=== PATIENT | male | born 1990 | race Caucasian/White ===

== ENCOUNTER 2017-03-11 05:40 | Emergency (ER) | payer OTHER ==
[2017-03-11 05:44] VITALS: BMI 25.5
--- NOTE | 2017-03-11 05:46 | PDOC ---
Attending Attestation - Resident Resident Name: Rabia Ring - ED Attending Attestation I have performed the following: I have examined & evaluated the patient, The case was reviewed & discussed with the resident, I agree w/resident's findings & plan, Exceptions are as noted - HPI HPI: 03/11/17 06:37 Mid sternal cp with started just prior to presentation. Pt brought in by EMS. - Physicial Exam PE: 03/11/17 06:37 *Physical Exam General Appearance: Yes: Appropriately Dressed. No: Apparent Distress, Intoxicated HEENT: positive: EOMI, DEREK, Normal ENT Inspection, Normal Voice, TMs Normal, Pharynx Normal. negative: Pale Conjunctivae, Photophobia, Scleral Icterus (R), Scleral Icterus (L) Neck: positive: Trachea midline, Normal Thyroid, Supple. negative: Tender, Rigid, Carotid bruit, Stridor, Lymphadenopathy (R), Lymphadenopathy (L), Thyromegaly Respiratory/Chest: positive: Lungs Clear, Normal Breath Sounds. negative: Chest Tender, Respiratory Distress, Accessory Muscle Use, Labored Respiration, RES, Crackles, Rales, Rhonchi, Stridor, Wheezing, Dullness Cardiovascular: positive: Regular Rhythm, Regular Rate, S1, S2. negative: Edema , JVD, Murmur, Bradycardia, Tachycardia Vascular Pulses: Dorsalis-Pedis (R): 2+, Doralis-Pedis (L): 2+ Gastrointestinal/Abdominal: positive: Normal Bowel Sounds, Flat, Soft. negative : Tender, Organomegaly, Pulsatile Mass, Increased Bowel Sounds, Decreased BS, Distended, Guarding, Rebound, Hernia, Hepatomegaly, Spleenomegaly Lymphatic: negative: Adenopathy, Tenderness Musculoskeletal: positive: Normal Inspection. negative: CVA Tenderness, Decreased Range of Motion Extremity: positive: Normal Capillary Refill, Normal Inspection, Normal Range of Motion, Pelvis Stable. negative: Tender, Pedal Edema, Swelling, Erythema Integumentary: positive: Normal Color, Dry, Warm. negative: Cyanotic, Erythema , Jaundice, Rash Neurologic: positive: truckman II-XII NML intact, Fully Oriented, Alert, Normal Mood/ Affect, Motor Strength 5/5. negative: EOM Palsy, Facial Droop, Sensory Deficit - Medical Decision Making 03/11/17 19:37 Pt discharged after labs appear to be stable
[2017-03-11 05:55] LABS: EOSINOPHIL 0.4 % (0-4.5); MCH 32.4 pg (25.7-33.7); MCHC 34.8 g/dl (32.0-35.9); MEAN CELL VOLUME 93.1 fl (80-96); NEUTROPHILS 70.7 % (42.8-82.8); PLATELET COUNT 293 K/MM3 (134-434); RDW 13.8 % (11.9-15.9); WHITE BLOOD COUNT 8.9 K/mm3 (4.0-10.0)
--- NOTE | 2017-03-11 05:59 | PDOC ---
History of Present Illness - General Chief Complaint: Chest Pain Stated Complaint: CHEST PAIN Time Seen by Provider: 03/11/17 05:44 History Source: Patient - History of Present Illness Initial Comments: 03/11/17 05:58 Patient is a 26 y.o. male who presents with acute onset of chest pain. Patient states he was watching television when he felt a stabbing bilateral chest pain. Patient endorses associated diaphoresis and subsequently diarrhea but denies any dyspnea, lightheadness, vomiting. Patient notes he smoked marijuana on Wednesday. Past History - Past Medical History Allergies/Adverse Reactions: Allergies Allergy/AdvReac Type Severity Reaction Status Date / Time No Known Allergies Allergy Verified 03/11/17 05:42 Home Medications: Ambulatory Orders NK [No Known Home Medication] 03/11/17 - Suicide/Smoking/Psychosocial Hx Smoking History: Current every day smoker Have you smoked in the past 12 months: Yes Number of Cigarettes Smoked Daily: 10 Information on smoking cessation initiated: No Hx Alcohol Use: No Drug/Substance Use Hx: No Review of Systems - Review of Systems Constitutional: Yes: Diaphoresis Respiratory: No: Shortness of Breath Cardiac (ROS): Yes: Chest Pain ABD/GI: Yes: Diarrhea. No: Constipated, Nausea, Vomiting All Other Systems: Reviewed and Negative *Physical Exam - Vital Signs Last Vital Signs Temp Pulse Resp BP Pulse Ox 88 14 168/98 100 03/11/17 05:43 03/11/17 05:43 03/11/17 05:43 03/11/17 05:43 - Physical Exam General Appearance: Yes: Nourished, Appropriately Dressed Neck: positive: Trachea midline, Supple Respiratory/Chest: positive: Lungs Clear Cardiovascular: positive: S1, S2 Gastrointestinal/Abdominal: positive: Normal Bowel Sounds, Soft Extremity: positive: Normal Capillary Refill, Normal Inspection Neurologic: positive: Fully Oriented, Alert ED Treatment Course - LABORATORY CBC & Chemistry Diagram: 03/11/17 05:42 03/11/17 05:42 - RADIOLOGY Radiology Studies Ordered: Category Date Time Status CHEST PA & LAT [RAD] Stat Radiology 03/11/17 05:43 Ordered Medical Decision Making - Medical Decision Making 03/11/17 06:00 Patient is a 26 y.o. male who presents with acute onset of chest pain. Initial DDx is for r/o ACS vs. Toxic ingestion vs. muscle pain. PLAN: 1. Troponin, CBC, CMP 2. EKG 3. CXR 4. Urine toxicology screen 03/11/17 06:01 EKG shows NSR, HR 85, RBBB in V1, normal intervals, normal T wave, and no ST elevations/depressions, the latter indicating no acute ischemic change 03/11/17 06:54 Urine positive for amphetamines and marijuana, patient's repeat BP 179/103 - patient administered Ativan (1 mg). Repeat Troponin in 6 hour (12 p.m.) 03/11/17 06:55 Likely disposition is observation admit or discharge pending patient's BP; Patient signed out to Dr. Hayes (Resident) and Dr. Zuniga (Attending) *DC/Admit/Observation/Transfer Diagnosis at time of Disposition: Chest pain
[2017-03-11 06:11] LABS: INR 0.91 (0.82-1.09); PROTHROMBIN TIME (PATIENT) 10.3 SEC (9.98-11.88)
[2017-03-11 06:12] LABS: URINE APPEARANCE CLEAR; URINE BILIRUBIN NEGATIVE (NEGATIVE); URINE BLOOD NEGATIVE (NEGATIVE); URINE COLOR STRAW; URINE GLUCOSE (UA) NEGATIVE (NEGATIVE); URINE KETONE NEGATIVE (NEGATIVE); URINE NITRITE NEGATIVE (NEGATIVE); URINE PROTEIN NEGATIVE (NEGATIVE); URINE UROBILINOGEN NEGATIVE mg/dL (0.2-1.0)
[2017-03-11 06:13] LABS: ACTIVATED PTT 30.3 SECONDS (26.9-34.4)
[2017-03-11 06:22] LABS: ALBUMIN 4.3 g/dl (3.4-5.0); ANION GAP 9 (8-16); BILIRUBIN,TOTAL 1.2 mg/dL (0.2-1.0); CO2 26 mmol/L (21-32); CREATININE 0.8 mg/dL (0.7-1.3); GLUCOSE,RANDOM 100 mg/dL (74-106); SGOT/AST 67 U/L (15-37); SGPT/ALT 40 U/L (12-78); TOT PROT 7.9 g/dl (6.4-8.2)
[2017-03-11 06:22] LABS: URINE MARIJUANA THC POSITIVE ng/ml (CUTOFF=50)
[2017-03-11 06:25] LABS: ALK PHOS 102 U/L (45-117); TROPONIN I < 0.02 ng/ml (0.00-0.05)
[2017-03-11] MEDS ORDERED: LORazepam 2 MG/ML SDV VIAL ONE (06:59)
--- NOTE | 2017-03-11 07:27 | PDOC ---
*Physical Exam - Vital Signs Last Vital Signs Temp Pulse Resp BP Pulse Ox 88 14 168/98 100 03/11/17 05:43 03/11/17 05:43 03/11/17 05:43 03/11/17 05:43 ED Treatment Course - LABORATORY CBC & Chemistry Diagram: 03/11/17 05:42 03/11/17 05:42 - ADDITIONAL ORDERS Additional order review: Laboratory Results 03/11/17 03/11/17 03/11/17 05:46 05:46 05:44 PT with INR 10.30 INR 0.91 PTT (Actin FS) 30.3 Sodium Potassium Chloride Carbon Dioxide Anion Gap BUN Creatinine Creat Clearance w eGFR Random Glucose Calcium Total Bilirubin AST ALT Alkaline Phosphatase Troponin I Total Protein Albumin Urine Color Straw Urine Appearance Clear Urine pH 7.0 Urine Protein Negative Urine Glucose (UA) Negative Urine Ketones Negative Urine Blood Negative Urine Nitrite Negative Urine Bilirubin Negative Urine Urobilinogen Negative Opiates Screen Negative Methadone Screen Negative Barbiturate Screen Negative Phencyclidine Screen Negative Ur Amphetamines Screen Positive MDMA (Ecstasy) Screen Negative Benzodiazepines Screen Negative Cocaine Screen Negative U Marijuana (THC) Screen Positive 03/11/17 05:42 PT with INR INR PTT (Actin FS) Sodium 138 Potassium 3.6 Chloride 103 Carbon Dioxide 26 Anion Gap 9 BUN 8 Creatinine 0.8 Creat Clearance w eGFR > 60 Random Glucose 100 Calcium 9.0 Total Bilirubin 1.2 H AST 67 H ALT 40 Alkaline Phosphatase 102 Troponin I < 0.02 Total Protein 7.9 Albumin 4.3 Urine Color Urine Appearance Urine pH Urine Protein Urine Glucose (UA) Urine Ketones Urine Blood Urine Nitrite Urine Bilirubin Urine Urobilinogen Opiates Screen Methadone Screen Barbiturate Screen Phencyclidine Screen Ur Amphetamines Screen MDMA (Ecstasy) Screen Benzodiazepines Screen Cocaine Screen U Marijuana (THC) Screen 03/11/17 05:42 RBC 4.60 MCV 93.1 MCHC 34.8 RDW 13.8 MPV 8.0 Neutrophils % 70.7 Lymphocytes % 19.2 Monocytes % 8.7 Eosinophils % 0.4 Basophils % 1.0 - Medications Given in the ED: ED Medications Discontinued Medications Generic Name Dose Route Start Last Admin Trade Name Freq PRN Reason Stop Dose Admin Lorazepam 1 mg 03/11/17 06:46 03/11/17 07:04 Ativan Injection - IVPUSH 03/11/17 06:47 1 mg ONCE ONE Administration Medical Decision Making - Medical Decision Making 03/11/17 07:24 Patient was signed out to me by night team, Dr. Ring. Patient is a 26M who complained of chest pain. Utox significant for amphetamines and marijuana. His visit is significant for a BP of 170's/100's which dropped to 160's/90's with ativan. The patient has a pending repeat trop at noon. Will put in ED obs order. 03/11/17 14:13 Trop negative x 3. CKMB elevated but index is WNL. Discussed with Dr. Camejo who agrees that this does not display any cardiac issue. Patient will be d/c. *DC/Admit/Observation/Transfer Diagnosis at time of Disposition: Chest pain Qualifiers: Chest pain type: unspecified Qualified Code(s): R07.9 - Chest pain, unspecified ; R07.9 - Chest pain, unspecified - Discharge Dispostion Disposition: HOME Condition at time of disposition: Stable Admit: Yes - Referrals Referrals: Soham Campbell MD [Staff Physician] - - Patient Instructions Printed Discharge Instructions: DI for Atypical Chest Pain, DI for Chest Pain Additional Instructions: Please return to the ER if symptoms persist, worsen, or new symptoms arise. Please follow up with your primary care physician in 2-3 days. Please return to the ER if you have any severe chest pain, shortness of breath, nausea, vomiting, and sweating.
--- NOTE | 2017-03-11 09:30 | PDOC ---
*Physical Exam - Vital Signs Last Vital Signs Temp Pulse Resp BP Pulse Ox 88 14 168/98 100 03/11/17 05:43 03/11/17 05:43 03/11/17 05:43 03/11/17 05:43 - Physical Exam Comments: 03/11/17 09:27 gen: aaox3, nad heart: +s1s2 reg Lungs: cta b/l abd: soft, nt/nd +bs ext: no c/c/e ED Treatment Course - LABORATORY CBC & Chemistry Diagram: 03/11/17 05:42 03/11/17 05:42 - ADDITIONAL ORDERS Additional order review: Laboratory Results 03/11/17 03/11/17 03/11/17 08:30 05:46 05:46 PT with INR INR PTT (Actin FS) Sodium Potassium Chloride Carbon Dioxide Anion Gap BUN Creatinine Creat Clearance w eGFR Random Glucose Calcium Total Bilirubin AST ALT Alkaline Phosphatase Troponin I < 0.02 Total Protein Albumin Urine Color Straw Urine Appearance Clear Urine pH 7.0 Urine Protein Negative Urine Glucose (UA) Negative Urine Ketones Negative Urine Blood Negative Urine Nitrite Negative Urine Bilirubin Negative Urine Urobilinogen Negative Opiates Screen Negative Methadone Screen Negative Barbiturate Screen Negative Phencyclidine Screen Negative Ur Amphetamines Screen Positive MDMA (Ecstasy) Screen Negative Benzodiazepines Screen Negative Cocaine Screen Negative U Marijuana (THC) Screen Positive 03/11/17 03/11/17 05:44 05:42 PT with INR 10.30 INR 0.91 PTT (Actin FS) 30.3 Sodium 138 Potassium 3.6 Chloride 103 Carbon Dioxide 26 Anion Gap 9 BUN 8 Creatinine 0.8 Creat Clearance w eGFR > 60 Random Glucose 100 Calcium 9.0 Total Bilirubin 1.2 H AST 67 H ALT 40 Alkaline Phosphatase 102 Troponin I < 0.02 Total Protein 7.9 Albumin 4.3 Urine Color Urine Appearance Urine pH Urine Protein Urine Glucose (UA) Urine Ketones Urine Blood Urine Nitrite Urine Bilirubin Urine Urobilinogen Opiates Screen Methadone Screen Barbiturate Screen Phencyclidine Screen Ur Amphetamines Screen MDMA (Ecstasy) Screen Benzodiazepines Screen Cocaine Screen U Marijuana (THC) Screen 03/11/17 05:42 RBC 4.60 MCV 93.1 MCHC 34.8 RDW 13.8 MPV 8.0 Neutrophils % 70.7 Lymphocytes % 19.2 Monocytes % 8.7 Eosinophils % 0.4 Basophils % 1.0 - Medications Given in the ED: ED Medications Discontinued Medications Generic Name Dose Route Start Last Admin Trade Name Mark PRN Reason Stop Dose Admin Lorazepam 1 mg 03/11/17 06:46 03/11/17 07:04 Ativan Injection - IVPUSH 03/11/17 06:47 1 mg ONCE ONE Administration Medical Decision Making - Medical Decision Making 03/11/17 09:28 a/p: pt signed out pending repeat trop UDS + methamphetamines and marijuana -repeat trop at noon -feeling better after ativan -will continue to monitor *DC/Admit/Observation/Transfer Diagnosis at time of Disposition: Chest pain
[2017-03-11 10:32] LABS: URINE LEUK ESTERASE Negative (NEGATIVE)
[2017-03-11 11:12] VITALS: TEMP 98.2
[2017-03-11 13:02] LABS: CPK 866 IU/L (39-308)
[2017-03-11 13:03] LABS: TROPONIN I < 0.02 ng/ml (0.00-0.05)
[2017-03-11 14:56] VITALS: BP 151/96; PULSE 92
--- NOTE | 2017-03-12 10:10 | EKG ---
Test Reason : Blood Pressure : / mmHG Vent. Rate : 085 BPM Atrial Rate : 085 BPM P-R Int : 130 ms QRS Dur : 104 ms QT Int : 370 ms P-R-T Axes : 060 089 054 degrees QTc Int : 440 ms NORMAL SINUS RHYTHM INCOMPLETE RIGHT BUNDLE BRANCH BLOCK NO PREVIOUS ECGS AVAILABLE Confirmed by DAVID ANGEL MD ([id number]) on 03/12/2017 10:09:53 AM Referred By: Confirmed By:DAVID ANGEL MD
== END 2017-03-11 14:56 | disposition home or self-care (01) ==
LOC: JER 05:40
PROC: 3E033NZ Introduction of Analgesics, Hypnotics, Sedatives into Peripheral Vein, Percutaneous Approach (ICD-10-PCS; principal; 2017-03-11)
DX: R07.89 Other chest pain (principal); F12.10 Cannabis abuse, uncomplicated; F15.10 Other stimulant abuse, uncomplicated
CPT/HCPCS: 36415; 71020-TC; 80053; 80307; 81003; 82550; 82553; 84484; 85025; 85610; 85730; 93005; 93010; 99284-25

== ENCOUNTER 2019-10-24 23:39 | Emergency (ER) | payer OTHER ==
[2019-10-24 23:54] VITALS: BP 150/90; PULSE 125; TEMP 98; BMI 28.0
[2019-10-24] MEDS ORDERED: SODIUM CHLORIDE 0.9% 500 ML INFUS.BAG IV ONE (23:57)
[2019-10-24] MEDS ORDERED: LACTATED RINGERS SOLUTION 1,000 ML/1,000 ML INFUS.BAG IV ONE (23:57)
[2019-10-25 00:13] LABS: BASO % 0.4 % (0-2.0); EOS % 2.2 % (0-4.5); HEMATOCRIT 38.2 % (35.4-49); LYMPH % 22.1 % (8-40); MCH 32.9 pg (25.7-33.7); MCHC 34.2 g/dl (32.0-35.9); MEAN CELL VOLUME 96.2 fl (80-96); MEAN PLT VOLUME 8.7 fl (7.5-11.1); MONO % 7.2 % (3.8-10.2); NEUT % 68.1 % (42.8-82.8); PLATELET COUNT 255 K/MM3 (134-434); RBC 3.97 M/mm3 (4.00-5.60); RDW 13.7 % (11.9-15.9); WHITE BLOOD COUNT 11.1 K/mm3 (4.0-10.0)
[2019-10-25] MEDS ORDERED: LORazepam 2 MG/ML SDV VIAL ONE (00:14)
[2019-10-25] MEDS ORDERED: ACETYLCYSTEINE 20% 200MG/ML 30ML VIAL *FOR INJECTION USE ONLY IVPB ONE ×2 (00:30→00:44)
[2019-10-25 00:45] LABS: ALBUMIN 4.5 g/dl (3.4-5.0); ALK PHOS 95 U/L (45-117); ANION GAP 13 MMOL/L (8-16); BILIRUBIN,TOTAL 0.6 mg/dL (0.2-1); BLOOD UREA NITROGEN 10.6 mg/dL (7-18); CHLORIDE 99 mmol/L (98-107); CO2 26 mmol/L (21-32); CREATININE 1.2 mg/dL (0.55-1.3); GLUCOSE,RANDOM 136 mg/dL (74-106); POTASSIUM 3.1 mmol/L (3.5-5.1); SGOT/AST 59 U/L (15-37); SGPT/ALT 59 U/L (13-61); SODIUM 137 mmol/L (136-145); TOT PROT 8.3 g/dl (6.4-8.2)
[2019-10-25] MEDS ORDERED: POTASSIUM CHLORIDE TABS 20 MEQ TABLET.ER (FP) PO ONE ×2 (01:14→02:34)
[2019-10-25 01:37] LABS: ACTIVATED PTT 27.7 SECONDS (25.2-36.5); INR 0.98 (0.83-1.09); PROTHROMBIN TIME (PATIENT) 11.6 SEC (9.7-13.0)
[2019-10-25 01:56] LABS: PH,URINE 5.5 (5.0-8.0); URINE APPEARANCE CLEAR; URINE BILIRUBIN NEGATIVE (NEGATIVE); URINE COLOR YELLOW; URINE GLUCOSE (UA) NEGATIVE (NEGATIVE); URINE KETONE 1+ (NEGATIVE); URINE LEUK ESTERASE NEGATIVE (NEGATIVE); URINE NITRITE NEGATIVE (NEGATIVE); URINE PROTEIN NEGATIVE (NEGATIVE); URINE UROBILINOGEN 0.2 mg/dL (0.2-1.0)
[2019-10-25 02:04] LABS: METHADONE, UR NEGATIVE ng/ml (CUTOFF=300); PHENCYCLIDINE,URINE NEGATIVE ng/ml (CUTOFF=25); URINE AMPHETAMINES NEGATIVE ng/ml (CUTOFF=500); URINE BARBITURATES NEGATIVE ng/ml (CUTOFF=200)
[2019-10-25 02:11] LABS: COCAINE, UR NEGATIVE ng/ml (CUTOFF=300)
[2019-10-25 02:14] LABS: OPIATES, URI POSITIVE ng/ml (CUTOFF=300); URINE BENZODIAZEPINES POSITIVE ng/ml (CUTOFF=200)
== END 2019-10-25 05:10 | disposition home or self-care (01) ==
LOC: JER 23:39
PROC: 3E03329 Introduction of Other Anti-infective into Peripheral Vein, Percutaneous Approach (ICD-10-PCS; principal; 2019-10-24)
PROC: 3E033GC Introduction of Other Therapeutic Substance into Peripheral Vein, Percutaneous Approach (ICD-10-PCS; 2019-10-24)
DX: T50.901A Poisoning by unspecified drugs, medicaments and biological substances, accidental (unintentional), initial encounter (principal)
CPT/HCPCS: 36415; 71045-TC-FY; 80053; 80307; 81003; 82550; 82553; 84484; 85025; 85610; 85730; 93005; 93010; 99285-25

== ENCOUNTER 2019-12-22 21:28 | Emergency (ER) | payer OTHER ==
[2019-12-22 21:32] VITALS: BP 126/84; PULSE 105; TEMP 98; BMI 26.7
--- NOTE | 2019-12-22 21:42 | PDOC ---
History of Present Illness - General Chief Complaint: Overdose Stated Complaint: OVERDOSE Time Seen by Provider: 12/22/19 21:42 Past History - Medical History Allergies/Adverse Reactions: Allergies Allergy/AdvReac Type Severity Reaction Status Date / Time No Known Allergies Allergy Verified 12/22/19 21:32 Home Medications: Ambulatory Orders Albuterol Sulfate Inhaler - [Ventolin HFA Inhaler -] 1 - 2 inh PO Q4H PRN #1 inhaler 08/08/19 Sodium Chloride [Saline Nasal [place]] 1 ml NS BID #1 spray 08/08/19 COPD: No - Psycho-Social/Smoking History Smoking History: Never smoked Have you smoked in the past 12 months: Yes Number of Cigarettes Smoked Daily: 10 - Substance Abuse Hx (Audit-C & DAST Scrn) How often the patient has a drink containing alcohol: 2-3 times / week Score: In Men: 4 or > Positive; In Women: 3 or > Positive: 3 Screen Result (Pos requires Nsg. Audit-10AR): Negative In the last yr the pt used illegal drug/Rx for NonMed reason: Yes Score: Yes response is considered Positive: 1 Screen Result (Positive result requires Nsg. DAST-10): Positive *Physical Exam - Vital Signs Last Vital Signs Temp Pulse Resp BP Pulse Ox 98 F 105 H 20 126/84 99 12/22/19 21:30 12/22/19 21:30 12/22/19 21:30 12/22/19 21:30 12/22/19 21:30 ED Treatment Course - LABORATORY CBC & Chemistry Diagram: 12/22/19 22:05 12/22/19 22:05 Medical Decision Making - Medical Decision Making 12/22/19 22:09 HPI: 29yo M no PMH presents from home concerned about overdose s/p ingestion 7 p ercocets. 7 10mg percocets starting at 2pm, 2 c/2hrs, at [employer] for [employer]. Been taking percocets for weeks now for fun, 3 yesterday, 2 day prior. Also drank 1 pint hennesy since 2pm and smoked cigarettes. Denies other drugs. Denies SI/HI/AVH. Pt concerned he overdosed. Endorses 1hr nausea, NBNB emesis x2, lightheadedness, intermittent numbness b/l hands and feet, anxiety, intermittent l-sided chest pain, SOB, and RUQ abdominal pain. Pt in [facility] prior. ROS: Constitutional: Negative for chills, fever, fatigue, diaphoresis. HENT: Negative for sore throat, rhinorrhea, congestion. Eyes: Negative for visual disturbance. Respiratory: Positive for shortness of breath. Negative for cough, and wheezing. Cardiovascular: Positive for chest pain. Negative for palpitations, and leg swelling. Gastrointestinal: Positive for RUQ pain, nausea, and vomiting. Negative for blood in stool, constipation, diarrhea,. Genitourinary: Negative for dysuria, flank pain, and hematuria. Musculoskeletal: Negative for myalgias, back pain, and neck pain. Skin: Negative for rash. Neurological: Positive for light-headedness, numbness. Negative for vertigo, syncope, weakness, and headaches. Psychiatric/Behavioral: Positive for anxiety, alcohol abuse, percocet abuse. Negative for SI/HI/AVH, self-harm, and confusion. PE: Gen: Alert, NAD, anxious-appearing, pacing HEENT: PERRL, EOMI, MMM, NCAT. No conjunctival pallor. Sclera are non-icteric. CV: Regular rate and rhythm. No murmurs, rubs, or gallops. PULM: No resp distress. CTAB, no wheezes, rales, or rhonchi. ABD: soft, NT/ND, no rebound tenderness or guarding, no CVA tenderness. BACK: No TTP of c/t/l-spine. No step-offs or deformities. MSK: No bony deformities. 2+ pulses in all extremities. NEURO: AAOx3. PERRL. CN 2-12 intact. 5/5 strength in all extremities. Sensation to light touch intact in all extremities. No pronator drift. No dysmetria. No dysdiadochokinesia. No abnormal nystagmus. Normal gait. EXTREMITIES: No cyanosis. No clubbing. No edema. No calf tenderness. PSYCH: Anxious mood and normal thought pattern. SKIN: Warm and dry. Normal capillary refill. No rashes. No jaundice. MDM: 29yo M no PMH presents from home concerned about overdose s/p ingestion 7 percocets. Tachycardic, otherwise hemodynamically stable, afebrile, neurologically intact, benign lung and abdomen exam, no respiratory distress or depression, anxious- appearing. Ddx: no e/o respiratory depression or lethargy from opiate or alcohol. Acetaminophen dose less than toxic level. Obtain labs, EKG, and CXR to r/o organ damage from ingestion. Also consider other etiologies of sx including pancreatitis, ACS/AK, arrhythmia, PNA, gastritis, colitis, gastroenteritis, infection, metabolic derangement, anemia. If workup equivocal and sx persist, consider further testing such as CT scan. -CBC, CMP, Lipase, Cardiac profile, UA/UC, UTox, alcohol, acetaminophen, salicylate -EKG -CXR -Dispo: pending w/u and reassessment 12/22/19 23:21 Labs reviewed. No concerning findings. EKG reviewed: normal sinus rhythm, normal axis, normal intervals, no e/o acute ischemia CXR reviewed: No acute pathology 12/22/19 23:57 []acetaminophen, salicylates Pt wants to leave; pt denies any symptoms at this time, states he feels better; states he has to get to his friend's house before he leaves soon. Pt informed of pending results and risk of leaving without results, potential future management and testing, and potential treatment. Pt expresses understanding and still refuses to stay. Pt informed he is encouraged to return for further care if he changes his mind. Pt signs AMA form and leaves with PCP f/u. Return precautions given. Pt understands all instructions and all questions were answered. Discharge - Discharge Information Problems reviewed: Yes Clinical Impression/Diagnosis: Chest pain, Percocet use disorder, mild, abuse, Substance abuse, Palpitations Condition: Improved Disposition: AGAINST MEDICAL ADVICE - Admission No - Follow up/Referral - Patient Discharge Instructions Patient Printed Discharge Instructions: DI for Drug Abuse and Drug Addiction Additional Instructions: You have been seen in the Emergency Department for your multiple symptoms after alcohol and percocet ingestion. Your EKG, chest X-ray, and labs, including Trop onin (a heart enzyme), show no signs concerning for an emergent condition such as a heart attack or pneumonia or emergent overdose. Your symptoms are most likely due to anxiety. Abuse of medications and alcohol is dangerous. Only take your medications as prescribed. We are still pending some of your tests. We need these tests to determine proper treatment. We have discussed this with you but you want to leave against medical advice prior to proper evaluation, diagnosis, and treatment. Should you change your mind you are welcome to return to this hospital, or any other, at any time. You understand that in no way does an AMA discharge mean that I do not want you to have the best medical care available. Follow-up with your primary care doctor within 1 week. Return to the Emergency Department immediately if you experience chest pain, difficulty breathing, passing out, or any other new or worsening symptom. - Post Discharge Activity
[2019-12-22] MEDS ORDERED: SODIUM CHLORIDE 0.9% 500 ML INFUS.BAG IV ONE (22:09)
[2019-12-22] MEDS ORDERED: DIPHTH,PERTUSS(ACELL),TET 0.5 ML DISP.SYRIN IM ONE ×2 (22:09→22:20)
[2019-12-22 22:35] LABS: BASO % 0.8 % (0-2.0); EOS % 0.5 % (0-4.5); HEMATOCRIT 42.2 % (35.4-49); HEMOGLOBIN 14.5 GM/dL (11.7-16.9); LYMPH % 24.3 % (8-40); MCH 32.9 pg (25.7-33.7); MCHC 34.3 g/dl (32.0-35.9); MEAN CELL VOLUME 95.8 fl (80-96); MEAN PLT VOLUME 8.6 fl (7.5-11.1); MONO % 8.8 % (3.8-10.2); NEUT % 65.6 % (42.8-82.8); PLATELET COUNT 375 K/MM3 (134-434); RBC 4.41 M/mm3 (4.00-5.60); RDW 14.3 % (11.9-15.9); WHITE BLOOD COUNT 13.3 K/mm3 (4.0-10.0)
[2019-12-22 22:58] LABS: COCAINE, UR NEGATIVE ng/ml (CUTOFF=300); METHADONE, UR NEGATIVE ng/ml (CUTOFF=300); OPIATES, URI NEGATIVE ng/ml (CUTOFF=300); PHENCYCLIDINE,URINE NEGATIVE ng/ml (CUTOFF=25); URINE AMPHETAMINES NEGATIVE ng/ml (CUTOFF=500); URINE BARBITURATES NEGATIVE ng/ml (CUTOFF=200); URINE BENZODIAZEPINES NEGATIVE ng/ml (CUTOFF=200)
[2019-12-22 23:05] LABS: ALBUMIN 4.7 g/dl (3.4-5.0); ALK PHOS 115 U/L (45-117); ANION GAP 9 MMOL/L (8-16); BILIRUBIN,TOTAL 0.6 mg/dL (0.2-1); BLOOD UREA NITROGEN 12.3 mg/dL (7-18); CALCIUM 9.9 mg/dL (8.5-10.1); CHLORIDE 98 mmol/L (98-107); CO2 28 mmol/L (21-32); CREATININE 1.2 mg/dL (0.55-1.3); GLUCOSE,RANDOM 110 mg/dL (74-106); LIPASE 149 U/L (73-393); POTASSIUM 3.6 mmol/L (3.5-5.1); SGOT/AST 47 U/L (15-37); SGPT/ALT 54 U/L (13-61); SODIUM 136 mmol/L (136-145)
--- NOTE | 2019-12-22 23:19 | PDOC ---
Documentation entered by Brian Hayes SCRIBE, acting as scribe for Yaya Barth MD. Yaya Barth MD: This documentation has been prepared by the Abigail olivia Xhesika, SCRIBE, under my direction and personally reviewed by me in its entirety. I confirm that the documentation accurately reflects all work, treatment, procedures, and medical decision making performed by me. Attending Attestation - Resident Resident Name: Michelle Vikcers - ED Attending Attestation I have performed the following: I have examined & evaluated the patient, The case was reviewed & discussed with the resident, I agree w/resident's findings & plan, Exceptions are as noted - HPI HPI: 12/22/19 22:05 The patient is a 29y/o M with a PMH of schizophrenia, bipolar disorder, asthma, and polysubstance abuse who presents to the ED for evaluation of possible overdose. Pt states he had 7 10mg percocets and drank 1 pint of hennesy at a [employer] [place] for [place], starting at 2pm. Last dose was about 2 hours ago. Pt is concerned that he overdosed on the percocets and states he feels anxious, with chest tightness and SOB. Also endorses N+V. Denies any suicidal or homicidal ideation. Denies AVH. Allergies: NKDA - Physicial Exam PE: 12/22/19 23:21 "GENERAL: Awake, alert, and fully oriented, in no acute distress. HEAD: No signs of trauma EYES: PERRLA, EOMI, sclera anicteric, conjunctiva clear ENT: Auricles normal inspection, hearing grossly normal, nares patent, oropharynx clear without exudates. Moist mucosa NECK: Nontender, no stepoffs, Normal ROM, supple, no lymphadenopathy, JVD, or masses LUNGS: Breath sounds equal, clear to auscultation bilaterally. No wheezes, and no crackles HEART: Regular rate and rhythm, normal S1 and S2, no murmurs, rubs or gallops ABDOMEN: Soft, nontender, normoactive bowel sounds. No guarding, no rebound. No masses EXTREMITIES: Normal range of motion, no edema. No clubbing or cyanosis. No cords, erythema, or tenderness NEUROLOGICAL: Cranial nerves II through XII intact. 5/5 strength and sensation in all extremities, Normal speech, normal gait, normal cerebellar function SKIN: Warm, Dry, normal turgor, no rashes or lesions noted. - Medical Decision Making 12/22/19 23:21 29 M here for evaluation of possible overdose. Pt took 7 percocets reportedly. Pt complaining of N+V and CP and SOB, likely 2/2 anxiety. Pt with normal EKG. - Labs - Tylenol level - Reassess 12/22/19 23:23 Pt now requesting to go home, stating he feels much better. Denies any complaints at this time. Labs thus far wnl, tylenol and salicylate levels pending 12/22/19 23:57 Tylenol, salicylate levels still pending Pt no longer willing to wait for results, stating he has to leave because his friend has to go to work, and his belongings are at his house. The patient is clinically sober, free from distracting injury, appears to have intact insight and judgment and reason and in my opinion has the capacity to make decisions. The patient presented with possible overdose. I have explained that I am concerned that he may have tylenol toxicity or other medical condition; they have verbalized an understanding of my concerns. I have told the patient that if they leave, they could get much worse, could become critically ill, and could possibly become disabled or . He is refusing any further care and is leaving against medical advice. I am unable to convince the patient to stay, I have asked them to return as soon as possible to complete their evaluation. I have answered all their questions. Discharge - Discharge Information Problems reviewed: Yes Clinical Impression/Diagnosis: Chest pain, Percocet use disorder, mild, abuse, Substance abuse, Palpitations Condition: Improved Disposition: AGAINST MEDICAL ADVICE - Follow up/Referral - Patient Discharge Instructions Patient Printed Discharge Instructions: DI for Drug Abuse and Drug Addiction Additional Instructions: You have been seen in the Emergency Department for your multiple symptoms after alcohol and percocet ingestion. Your EKG, chest X-ray, and labs, including Troponin (a heart enzyme), show no signs concerning for an emergent condition such as a heart attack or pneumonia or emergent overdose. Your symptoms are most likely due to anxiety. Abuse of medications and alcohol is dangerous. Only take your medications as prescribed. We are still pending some of your tests. We need these tests to determine proper treatment. We have discussed this with you but you want to leave against medical advice prior to proper evaluation, diagnosis, and treatment. Should you change your mind you are welcome to return to this hospital, or any other, at any time. You understand that in no way does an AMA discharge mean that I do not want you to have the best medical care available. Follow-up with your primary care doctor within 1 week. Return to the Emergency Department immediately if you experience chest pain, difficulty breathing, passing out, or any other new or worsening symptom. - Post Discharge Activity
[2019-12-22 23:22] LABS: INR 0.97 (0.83-1.09); PROTHROMBIN TIME (PATIENT) 11.4 SEC (9.7-13.0)
[2019-12-22 23:25] LABS: ACTIVATED PTT 30.9 SECONDS (25.2-36.5)
[2019-12-22 23:50] LABS: EPI CELLS 2 /uL (0-25.1); HYALINE CASTS 0 /uL (0-3.1); PH,URINE 7.5 (5.0-8.0); URINE APPEARANCE CLEAR; URINE BACTERIA 5 /uL (0-1359); URINE BILIRUBIN NEGATIVE (NEGATIVE); URINE COLOR YELLOW; URINE GLUCOSE (UA) NEGATIVE (NEGATIVE); URINE KETONE NEGATIVE (NEGATIVE); URINE LEUK ESTERASE NEGATIVE (NEGATIVE); URINE NITRITE NEGATIVE (NEGATIVE); URINE PROTEIN NEGATIVE (NEGATIVE); URINE RBC 1 /uL (0-23.9); URINE UROBILINOGEN 0.2 mg/dL (0.2-1.0); URINE WBC 0 /uL (0-25.8)
--- NOTE | 2019-12-23 10:51 | EKG ---
Test Reason : Blood Pressure : / mmHG Vent. Rate : 081 BPM Atrial Rate : 081 BPM P-R Int : 174 ms QRS Dur : 106 ms QT Int : 384 ms P-R-T Axes : 071 080 040 degrees QTc Int : 446 ms NORMAL SINUS RHYTHM WITH SINUS ARRHYTHMIA INCOMPLETE RIGHT BUNDLE BRANCH BLOCK BORDERLINE ECG WHEN COMPARED WITH ECG OF 25-OCT-2019 00:21, NONSPECIFIC T WAVE ABNORMALITY HAS REPLACED INVERTED T WAVES IN INFERIOR LEADS NONSPECIFIC T WAVE ABNORMALITY NO LONGER EVIDENT IN ANTEROLATERAL LEADS Confirmed by Cony Enamorado ([id number]) on 12/23/2019 10:50:56 AM Referred By: Confirmed By:Cony Enamorado
== END 2019-12-23 00:18 | disposition left against medical advice (07) ==
LOC: JER 21:28
PROC: 3E0234Z Introduction of Serum, Toxoid and Vaccine into Muscle, Percutaneous Approach (ICD-10-PCS; principal; 2019-12-22)
DX: R07.9 Chest pain, unspecified (principal); F11.10 Opioid abuse, uncomplicated; R00.2 Palpitations
CPT/HCPCS: 36415; 71045-TC-FY; 80053; 80307; 81003; 82550; 82553; 83690; 84484; 85025; 85610; 85730; 90715; 93005; 93010; 99284-25

== ENCOUNTER 2020-04-17 15:44 | Emergency (ER) | payer OTHER ==
[2020-04-17 16:14] VITALS: BMI 27.3
[2020-04-17] MEDS ORDERED: ACETAMINOPHEN INJECTION 100 ML IVPB ONE (18:04)
[2020-04-17] MEDS ORDERED: ACETAMINOPHEN 1000 MG/100 ML VIAL (NON FORMULARY) IVPB ONE (18:11)
[2020-04-17] MEDS ORDERED: SODIUM CHLORIDE 0.9% 500 ML INFUS.BAG IV ONE (18:11)
[2020-04-17 19:04] LABS: BASO % 0.1 % (0-2.0); EOS % 0.5 % (0-4.5); HEMOGLOBIN 13.6 GM/dL (11.7-16.9); LYMPH % 5.1 % (8-40); MCH 32.7 pg (25.7-33.7); MCHC 34.2 g/dl (32.0-35.9); MEAN CELL VOLUME 95.8 fl (80-96); MEAN PLT VOLUME 9.7 fl (7.5-11.1); MONO % 14.3 % (3.8-10.2); PLATELET COUNT 267 K/MM3 (134-434); RBC 4.17 M/mm3 (4.00-5.60); RDW 15.1 % (11.9-15.9); WHITE BLOOD COUNT 13.7 K/mm3 (4.0-10.0)
[2020-04-17 19:11] LABS: INR 1.13 (0.83-1.09); PROTHROMBIN TIME (PATIENT) 13.6 SEC (9.7-13.0)
[2020-04-17 19:15] LABS: ACTIVATED PTT 28.8 SECONDS (25.2-36.5)
[2020-04-17 19:22] LABS: POTASSIUM 4.6 mmol/L (3.5-5.1)
[2020-04-17 19:26] LABS: ALBUMIN 2.9 g/dl (3.4-5.0); BLOOD UREA NITROGEN 94.5 mg/dL (7-18)
[2020-04-17 19:31] LABS: BILIRUBIN,TOTAL 1.4 mg/dL (0.2-1); TOT PROT 7.1 g/dl (6.4-8.2)
[2020-04-17 19:39] LABS: CALCIUM 6.9 mg/dL (8.5-10.1)
[2020-04-17 19:55] LABS: ANISOCYTOSIS 1+; MACROCYTOSIS 0; PLATELET ESTIMATE NORMAL
[2020-04-17] MEDS ORDERED: CALCIUM CARBONATE SUSPENSION - 500 MG/5 ML ML PO ONE (20:12)
[2020-04-17] MEDS ORDERED: SODIUM CHLORIDE 1,000 ML IV SCH (20:30)
[2020-04-17 20:44] VITALS: TEMP 99.3
[2020-04-17 21:21] LABS: EPI CELLS 4 /uL (0-25.1); HYALINE CASTS 2 /uL (0-3.1); URINE APPEARANCE CLOUDY; URINE BACTERIA 32 /uL (0-1359); URINE BILIRUBIN NEGATIVE (NEGATIVE); URINE COLOR YELLOW; URINE GLUCOSE (UA) NEGATIVE (NEGATIVE); URINE KETONE NEGATIVE (NEGATIVE); URINE LEUK ESTERASE NEGATIVE (NEGATIVE); URINE NITRITE NEGATIVE (NEGATIVE); URINE PROTEIN 1+ (NEGATIVE); URINE UROBILINOGEN 0.2 mg/dL (0.2-1.0); URINE WBC 9 /uL (0-25.8)
[2020-04-17 21:32] LABS: COCAINE, UR NEGATIVE ng/ml (CUTOFF=300)
[2020-04-17 21:33] LABS: METHADONE, UR NEGATIVE ng/ml (CUTOFF=300); OPIATES, URI NEGATIVE ng/ml (CUTOFF=300); PHENCYCLIDINE,URINE NEGATIVE ng/ml (CUTOFF=25); URINE AMPHETAMINES NEGATIVE ng/ml (CUTOFF=500); URINE BARBITURATES NEGATIVE ng/ml (CUTOFF=200)
[2020-04-17 21:35] VITALS: BP 117/69; PULSE 117
[2020-04-17 21:53] LABS: URINE BENZODIAZEPINES POSITIVE ng/ml (CUTOFF=200)
[2020-04-17 22:42] LABS: URINE RBC 22.6 /uL (0-23.9)
== END 2020-04-17 21:45 | disposition left against medical advice (07) ==
LOC: JER 15:44
PROC: 3E0333Z Introduction of Anti-inflammatory into Peripheral Vein, Percutaneous Approach (ICD-10-PCS; principal; 2020-04-17)
DX: N17.9 Acute kidney failure, unspecified (principal); E87.1 Hypo-osmolality and hyponatremia; E83.51 Hypocalcemia
CPT/HCPCS: 36415; 71045-TC-FY; 80053; 80307; 81003; 83935; 84300; 85025; 85610; 85730; 87040; 87086; 87804; 93005; 93010; 99285-25; C9803; J0131; U0003

== ENCOUNTER 2020-04-21 23:17 | Inpatient (IN) | payer OTHER ==
[2020-04-22] MEDS ORDERED: SODIUM CHLORIDE 0.9% 500 ML INFUS.BAG IV ONE (00:06)
[2020-04-22 00:16] VITALS: BMI 27.3
[2020-04-22 01:06] LABS: BASO % 0.3 % (0-2.0); EOS % 0.3 % (0-4.5); HEMATOCRIT 38.2 % (35.4-49); HEMOGLOBIN 13.1 GM/dL (11.7-16.9); LYMPH % 3.6 % (8-40); MCH 32.7 pg (25.7-33.7); MCHC 34.2 g/dl (32.0-35.9); MEAN CELL VOLUME 95.5 fl (80-96); MEAN PLT VOLUME 7.8 fl (7.5-11.1); MONO % 6.6 % (3.8-10.2); NEUT % 89.2 % (42.8-82.8); PLATELET COUNT 617 K/MM3 (134-434); RBC 4.01 M/mm3 (4.00-5.60); RDW 15.5 % (11.9-15.9)
[2020-04-22 01:18] LABS: INR 1.26 (0.83-1.09); PROTHROMBIN TIME (PATIENT) 15.1 SEC (9.7-13.0)
[2020-04-22 01:20] LABS: CHLORIDE 88 mmol/L (98-107); POTASSIUM 3.9 mmol/L (3.5-5.1); SODIUM 130 mmol/L (136-145)
[2020-04-22 01:21] LABS: ACTIVATED PTT 30.6 SECONDS (25.2-36.5)
[2020-04-22 01:22] LABS: ANION GAP 12 MMOL/L (8-16); CO2 31 mmol/L (21-32)
[2020-04-22 01:23] LABS: GLUCOSE,RANDOM 134 mg/dL (74-106)
[2020-04-22 01:26] LABS: BILIRUBIN,DIRECT 0.5 mg/dL (0.0-0.2); CREATININE 1.1 mg/dL (0.55-1.3); SGPT/ALT 64 U/L (13-61)
[2020-04-22 01:27] LABS: LDH 637 U/L (87-246); SGOT/AST 62 U/L (15-37)
[2020-04-22 01:28] LABS: BILIRUBIN,TOTAL 0.8 mg/dL (0.2-1); TOT PROT 8.6 g/dl (6.4-8.2)
[2020-04-22 01:33] LABS: ALK PHOS 423 U/L (45-117); BLOOD UREA NITROGEN 22.9 mg/dL (7-18)
[2020-04-22 02:11] LABS: ANISOCYTOSIS 0; MACROCYTOSIS 0; PLATELET ESTIMATE INCREASED
[2020-04-22 02:34] LABS: EPI CELLS 13 /uL (0-25.1); HYALINE CASTS 8 /uL (0-3.1); URINE APPEARANCE CLOUDY; URINE BACTERIA 2 /uL (0-1359); URINE BILIRUBIN NEGATIVE (NEGATIVE); URINE COLOR DK YELLOW; URINE GLUCOSE (UA) NEGATIVE (NEGATIVE); URINE KETONE NEGATIVE (NEGATIVE); URINE LEUK ESTERASE NEGATIVE (NEGATIVE); URINE NITRITE NEGATIVE (NEGATIVE); URINE PROTEIN 1+ (NEGATIVE); URINE RBC 12 /uL (0-23.9); URINE WBC 11 /uL (0-25.8)
[2020-04-22 02:43] LABS: METHADONE, UR NEGATIVE ng/ml (CUTOFF=300); OPIATES, URI NEGATIVE ng/ml (CUTOFF=300); PHENCYCLIDINE,URINE NEGATIVE ng/ml (CUTOFF=25); URINE AMPHETAMINES NEGATIVE ng/ml (CUTOFF=500); URINE BARBITURATES NEGATIVE ng/ml (CUTOFF=200)
[2020-04-22 02:51] LABS: COCAINE, UR NEGATIVE ng/ml (CUTOFF=300)
[2020-04-22 02:53] LABS: URINE BENZODIAZEPINES POSITIVE ng/ml (CUTOFF=200)
[2020-04-22 03:23] LABS: HIV INTERPRETATION NEGATIVE (NEGATIVE)
[2020-04-22 03:51] LABS: LIPASE 491 U/L (73-393)
[2020-04-22] MEDS ORDERED: VANCOMYCIN 1 GM in D5W (PRE-DOCKED) 1,000 MG/250 ML IVPB ONE (05:04)
[2020-04-22] MEDS ORDERED: PIPERACILLIN/TAZOB 4.5 GM 4.5 GM in DEXTROSE 5%-WATER 100 ML IVPB ONE (05:04)
[2020-04-22] MEDS ORDERED: PIPERACILLIN/TAZOB 4.5 GM 4.5 GM/100 ML BAG IVPB ONE ×2 (05:17→11:32)
[2020-04-22] MEDS ORDERED: VANCOMYCIN 1 GRAM (PRE-DOCKED) 1,000 MG/250 ML BAG IVPB ONE (05:17)
[2020-04-22] MEDS ORDERED: SODIUM CHLORIDE 1,000 ML IV SCH ×3 (05:30→13:45)
[2020-04-22] MEDS ORDERED: VANCOMYCIN HCL 1,500 MG in DEXTROSE 5%-WATER - 500 ML IVPB ONE (05:30)
[2020-04-22] MEDS ORDERED: FOLIC ACID INJECTION - 1 MG, THIAMINE HCL 100 MG, MULTIVIT INJECTION ADULT 10 ML in SOD... IVPB ONE (05:45)
[2020-04-22] MEDS ORDERED: HEPARIN NA (PORCINE) 5,000 UNITS/ML 1ML VIAL ONE ×2 (06:14→14:25)
[2020-04-22] MEDS ORDERED: LACTATED RINGERS SOLUTION 1,000 ML/1,000 ML INFUS.BAG IV SCH (06:15)
[2020-04-22] MEDS: HEPARIN NA (PORCINE) 5,000 UNITS/ML 1ML VIAL SQ SCH ×2 (06:24→14:44)
[2020-04-22] MEDS ORDERED: SODIUM CHLORIDE 0.45% 1,000 ML IV SCH (08:00)
[2020-04-22 08:39] LABS: HEMATOCRIT 36.1 % (35.4-49); HEMOGLOBIN 12.4 GM/dL (11.7-16.9); MCH 32.8 pg (25.7-33.7); MCHC 34.3 g/dl (32.0-35.9); MEAN CELL VOLUME 95.6 fl (80-96); MEAN PLT VOLUME 7.5 fl (7.5-11.1); PLATELET COUNT 588 K/MM3 (134-434); RBC 3.78 M/mm3 (4.00-5.60); RDW 15.2 % (11.9-15.9)
[2020-04-22 08:41] LABS: WHITE BLOOD COUNT 31.7 K/mm3 (4.0-10.0)
[2020-04-22 09:03] LABS: POTASSIUM 3.5 mmol/L (3.5-5.1)
[2020-04-22 09:06] LABS: ALBUMIN 2.8 g/dl (3.4-5.0); CALCIUM 8.7 mg/dL (8.5-10.1)
[2020-04-22 09:07] LABS: BLOOD UREA NITROGEN 20.5 mg/dL (7-18); MAGNESIUM 2.8 mg/dL (1.8-2.4)
[2020-04-22 09:08] LABS: CREATININE 1.1 mg/dL (0.55-1.3); PHOSPHOROUS 4.3 mg/dL (2.5-4.9)
[2020-04-22 09:11] LABS: BILIRUBIN,TOTAL 0.9 mg/dL (0.2-1); TOT PROT 7.9 g/dl (6.4-8.2)
[2020-04-22] MEDS ORDERED: VANCOMYCIN 1 GM in D5W (PRE-DOCKED) 1,000 MG/250 ML IVPB SCH (10:00)
[2020-04-22] MEDS ORDERED: FOLIC ACID 1 MG TABLET (FP) PO SCH (10:00)
[2020-04-22] MEDS ORDERED: LITHIUM CARBONATE 300 MG CAPSULE (FP) PO SCH (10:00)
[2020-04-22] MEDS ORDERED: THIAMINE HCL 100 MG TABLET (FP) PO SCH (10:00)
[2020-04-22] MEDS ORDERED: MULTIVITAMINS (DAILY MVI) TABLET (FP) PO SCH (10:00)
[2020-04-22] MEDS ORDERED: VANCOMYCIN HCL 1,500 MG in DEXTROSE 5%-WATER - 500 ML IVPB SCH (11:30)
[2020-04-22] MEDS ORDERED: MULTIVITAMINS (DAILY MVI) TABLET (FP) ONE (11:31)
[2020-04-22] MEDS ORDERED: THIAMINE HCL 100 MG TABLET (FP) ONE (11:32)
[2020-04-22] MEDS ORDERED: FOLIC ACID 1 MG TABLET (FP) ONE (11:32)
[2020-04-22] MEDS ORDERED: PIPERACILLIN/TAZOB 4.5 GM 4.5 GM in DEXTROSE 5%-WATER 100 ML IVPB SCH (12:00)
[2020-04-22] MEDS ORDERED: PIPERACILLIN/TAZOB 3.375 GM 3.375 GM in DEXTROSE 5%-WATER - 50 ML IVPB SCH ×2 (12:00→18:00)
[2020-04-22 16:32] VITALS: BP 132/65; PULSE 85; TEMP 98.1
[2020-04-22] MEDS ORDERED: QUEtiapine FUMARATE 300 MG TABLET PO SCH (22:00)
== END 2020-04-22 16:15 | disposition left against medical advice (07) | DRG 422 ==
LOC: JER 23:17 → JERBED 04-22 02:05
PROVIDERS: ADMIT Internal Medicine; ATTEND Nurse Practitioner Acute Care
DX: E87.1 Hypo-osmolality and hyponatremia (principal); F20.9 Schizophrenia, unspecified; F41.8 Other specified anxiety disorders; I10 Essential (primary) hypertension; F11.10 Opioid abuse, uncomplicated; F19.20 Other psychoactive substance dependence, uncomplicated; F10.10 Alcohol abuse, uncomplicated; F17.210 Nicotine dependence, cigarettes, uncomplicated; D72.829 Elevated white blood cell count, unspecified; E88.09 Other disorders of plasma-protein metabolism, not elsewhere classified; R00.0 Tachycardia, unspecified; E86.0 Dehydration; R10.9 Unspecified abdominal pain; Z20.828 Contact with and (suspected) exposure to other viral communicable diseases
CPT/HCPCS: 36415; 71045-TC-FY; 71250-TC; 74176-TC; 80053; 80074; 80178; 80307; 81003; 82248; 82550; 82565; 82728; 83605; 83615; 83690; 83735; 84100; 84300; 84484; 85025; 85027; 85379; 85610; 85730; 86140; 87040; 87086; 87389; 87491; 87591; 93005; 93010; 99285-25; C9803; J1644; U0003

== ENCOUNTER 2020-11-21 20:26 | Emergency (ER) | payer OTHER ==
[2020-11-21 20:36] VITALS: BP 154/78; PULSE 99; TEMP 98; BMI 26.7
[2020-11-21] MEDS ORDERED: LORazepam 2 MG TABLET PO ONE (21:14)
[2020-11-21] MEDS ORDERED: PANTOPRAZOLE 40 MG TABLET PO ONE (21:29)
[2020-11-21 21:38] LABS: BASO % 0.5 % (0-2.0); EOS % 0.1 % (0-4.5); HEMATOCRIT 38.6 % (35.4-49); HEMOGLOBIN 13.2 GM/dL (11.7-16.9); LYMPH % 17.9 % (8-40); MCH 31.3 pg (25.7-33.7); MCHC 34.1 g/dl (32.0-35.9); MEAN CELL VOLUME 91.8 fl (80-96); MEAN PLT VOLUME 8.3 fl (7.5-11.1); MONO % 6.3 % (3.8-10.2); NEUT % 75.2 % (42.8-82.8); PLATELET COUNT 332 10^3/uL (134-434); RBC 4.21 M/mm3 (4.00-5.60); RDW 13.4 % (11.9-15.9); WHITE BLOOD COUNT 9.4 K/mm3 (4.0-10.0)
[2020-11-21] MEDS ORDERED: PANTOPRAZOLE 40 MG TABLET ONE (21:38)
[2020-11-21] MEDS ORDERED: LORazepam 1 MG TABLET ONE (21:39)
[2020-11-21 21:45] LABS: INR 1.15 (0.83-1.09); PROTHROMBIN TIME (PATIENT) 13.8 SEC (9.7-13.0)
[2020-11-21 21:56] LABS: CHLORIDE 102 mmol/L (98-107); SODIUM 139 mmol/L (136-145)
[2020-11-21 21:58] LABS: CALCIUM 8.9 mg/dL (8.5-10.1)
[2020-11-21 21:59] LABS: ALBUMIN 4.6 g/dl (3.4-5.0); ANION GAP 11 MMOL/L (8-16); BLOOD UREA NITROGEN 13.5 mg/dL (7-18); CO2 25 mmol/L (21-32); GLUCOSE,RANDOM 93 mg/dL (74-106); MAGNESIUM 2.1 mg/dL (1.8-2.4)
[2020-11-21 22:02] LABS: CREATININE 1.1 mg/dL (0.55-1.3); SGOT/AST 38 U/L (15-37); SGPT/ALT 37 U/L (13-61)
[2020-11-21 22:03] LABS: URINE AMPHETAMINES NEGATIVE (NEGATIVE); URINE BARBITURATES NEGATIVE (NEGATIVE); URINE BENZODIAZEPINES NEGATIVE (NEGATIVE)
[2020-11-21 22:04] LABS: METHADONE, UR NEGATIVE (NEGATIVE); OPIATES, URI NEGATIVE (NEGATIVE); PHENCYCLIDINE,URINE NEGATIVE (NEGATIVE); TOT PROT 8.2 g/dl (6.4-8.2)
[2020-11-21 22:05] LABS: ALK PHOS 127 U/L (45-117)
[2020-11-21 22:09] LABS: BILIRUBIN,TOTAL 0.5 mg/dL (0.2-1)
[2020-11-21 22:10] LABS: COCAINE, UR POSITIVE (NEGATIVE)
== END 2020-11-21 22:58 | disposition left against medical advice (07) ==
LOC: JER 20:26
DX: R07.9 Chest pain, unspecified (principal); F14.90 Cocaine use, unspecified, uncomplicated
CPT/HCPCS: 36415; 71046-TC-FY; 80053; 80307; 82550; 82553; 83735; 84484; 85025; 85610; 85730; 93005; 93010; 99284-25

== ENCOUNTER 2021-11-11 23:16 | Emergency (ER) | payer OTHER ==
[2021-11-11 23:58] VITALS: TEMP 98.3; BMI 28.0
[2021-11-12] MEDS ORDERED: IBUPROFEN 400 MG TABLET (FP) PO ONE ×2 (00:54→01:09)
[2021-11-12 02:39] VITALS: BP 158/98; PULSE 74
== END 2021-11-12 02:37 | disposition home or self-care (01) ==
LOC: JER 23:16
DX: S50.02XA Contusion of left elbow, initial encounter (principal); S60.221A Contusion of right hand, initial encounter; V86.56XA Driver of dirt bike or motor/cross bike injured in nontraffic accident, initial encounter
CPT/HCPCS: 73070-TC-LT-FY; 73130-TC-RT-FY; 93005; 93010; 99285-25

== ENCOUNTER 2023-09-22 18:43 | Emergency (ER) | payer OTHER ==
[2023-09-22 18:56] VITALS: BP 138/84; PULSE 94; RESP 18; TEMP 97.8; BMI 28.0
== END 2023-09-22 22:06 | disposition home or self-care (01) ==
LOC: JER 18:43 → JERFT 18:43
DX: R51.9 Headache, unspecified (principal); R11.0 Nausea; M54.50 Low back pain, unspecified; V86.56XA Driver of dirt bike or motor/cross bike injured in nontraffic accident, initial encounter
CPT/HCPCS: 70450-TC; 72070-TC-FY; 72125-TC; 99284-25

== ENCOUNTER 2023-09-24 15:21 | Emergency (ER) | payer OTHER ==
[2023-09-24 15:55] VITALS: RESP 18; BMI 27.3
[2023-09-24] MEDS ORDERED: ONDANSETRON 4 MG/2 ML VIAL ONE (16:16)
[2023-09-24 16:19] LABS: BASO % 0.5 % (0-2.0); EOS % 0.5 % (0-4.5); HEMATOCRIT 42.3 % (35.4-49); HEMOGLOBIN 14.8 GM/dL (11.7-16.9); LYMPH % 13.9 % (8-40); MCH 33.2 pg (25.7-33.7); MEAN CELL VOLUME 94.8 fl (80-96); MEAN PLT VOLUME 7.7 fl (7.5-11.1); MONO % 8.1 % (3.8-10.2); PLATELET COUNT 301 10^3/uL (134-434); RBC 4.46 M/mm3 (4.00-5.60); RDW 13.3 % (11.9-15.9); WHITE BLOOD COUNT 7.5 K/mm3 (4.0-10.0)
[2023-09-24 16:28] LABS: INR 0.98 (0.83-1.09); PROTHROMBIN TIME (PATIENT) 11.1 SEC (9.7-13.0)
[2023-09-24 16:31] LABS: ACTIVATED PTT 33.2 SECONDS (25.2-36.5)
[2023-09-24] MEDS: ONDANSETRON 4 MG/2 ML VIAL IVPUSH ONE (16:32)
[2023-09-24] MEDS: SODIUM CHLORIDE 0.9% 500 ML INFUS.BAG IV ONE (16:32)
[2023-09-24 16:34] LABS: PH,URINE 6.5 (5.0-8.0); URINE APPEARANCE CLEAR; URINE BILIRUBIN NEGATIVE (NEGATIVE); URINE COLOR YELLOW; URINE GLUCOSE (UA) NEGATIVE (NEGATIVE); URINE KETONE NEGATIVE (NEGATIVE); URINE LEUK ESTERASE NEGATIVE (NEGATIVE); URINE NITRITE NEGATIVE (NEGATIVE); URINE PROTEIN NEGATIVE (NEGATIVE); URINE UROBILINOGEN 0.2 mg/dL (0.2-1.0)
[2023-09-24 16:39] LABS: METHADONE, UR NEGATIVE (NEGATIVE); OPIATES, URI NEGATIVE (NEGATIVE); URINE AMPHETAMINES NEGATIVE (NEGATIVE); URINE BARBITURATES NEGATIVE (NEGATIVE)
[2023-09-24 16:41] LABS: POTASSIUM 4.5 mmol/L (3.5-5.1)
[2023-09-24 16:41] LABS: PHENCYCLIDINE,URINE NEGATIVE (NEGATIVE); URINE BENZODIAZEPINES NEGATIVE (NEGATIVE)
[2023-09-24 16:43] LABS: COCAINE, UR NEGATIVE (NEGATIVE)
[2023-09-24 16:43] LABS: BLOOD UREA NITROGEN 12.6 mg/dL (7-18); CALCIUM 9.4 mg/dL (8.5-10.1); MAGNESIUM 2.2 mg/dL (1.8-2.4)
[2023-09-24 16:46] LABS: CREATININE 0.9 mg/dL (0.55-1.3)
[2023-09-24 16:47] LABS: PHOSPHOROUS 2.8 mg/dL (2.5-4.9)
[2023-09-24 16:48] LABS: BILIRUBIN,TOTAL 0.3 mg/dL (0.2-1); TOT PROT 8.2 g/dl (6.4-8.2)
[2023-09-24 20:11] VITALS: BP 140/84; PULSE 67; TEMP 98
== END 2023-09-24 20:52 | disposition home or self-care (01) ==
LOC: JER 15:21
PROC: 3E033GC Introduction of Other Therapeutic Substance into Peripheral Vein, Percutaneous Approach (ICD-10-PCS; principal; 2023-09-24)
DX: R42 Dizziness and giddiness (principal); R53.1 Weakness; R00.2 Palpitations; R35.0 Frequency of micturition; S06.0X9A Concussion with loss of consciousness of unspecified duration, initial encounter
CPT/HCPCS: 36415; 70450-TC; 71046-TC-FY; 76705-TC; 80053; 80307; 81003; 83690; 83735; 84100; 84439; 84443; 84484; 85025; 85610; 85730; 86850; 86900; 86901; 87086; 93005; 93010; 99285-25